=== PATIENT | male | born 1980 | race Caucasian/White ===

== ENCOUNTER 2023-04-06 16:56 | Emergency (ER) | payer MEDICAID, SELFPAY ==
[2023-04-06 16:59] VITALS: BP 208/175; PULSE 116; RESP 20; TEMP 36; O2SAT 99
[2023-04-06 17:16] VITALS: BP 168/131; PULSE 98; O2SAT 98
[2023-04-06] MEDS: cloNIDine 0.1 MG TAB 0.2 MG PO (17:16)
[2023-04-06] MEDS: LORazepam 1 MG TAB 2 MG PO (17:17)
[2023-04-06 17:19] VITALS: BP 200/135; PULSE 97
[2023-04-06 17:29] VITALS: TEMP 36.8
[2023-04-06 17:31] VITALS: BP 155/108; PULSE 96
--- NOTE | 2023-04-06 17:49 | ED.GENADUL_ITS ---
HPI General Date/Time Provider Initiated Documentation: 04/06/23 16:57 . Limitations to Documentation: no limitations . Information obtained by: patient . HPI Narrative: 43-year-old gentleman with past medical history of polysubstance abuse presents for evaluation of withdrawal symptoms. He states that he feels very anxious and hyperactive. Some nausea, no vomiting or diarrhea.'s mild headache. Denies chest pain or shortness of breath. States that he uses IV heroin mixed with cocaine. Last use 5 days ago. Has not used alcohol in 14 years. Has taken some buprenorphine in the last couple of days but is worried that he needs clonidine for his blood pressure Related Data Home Medications Medication Instructions Recorded Confirmed clonidine HCl 0.1 mg tablet 0.1 mg PO TID 1 month #90 tabs 04/06/23 Previous Rx's Medication Instructions Recorded clonidine HCl 0.1 mg tablet 0.1 mg PO TID 1 month #90 tabs 04/06/23 Allergies Allergy/AdvReac Type Severity Reaction Status Date / Time No Known Allergies Allergy Unverified 04/06/23 17:03 General Stated Complaint: DrugWithdr/MAT MANOLO: 3 Exam Narrative Exam Narrative: Review of Systems: All systems reviewed & are unremarkable except as noted in HPI and below Well-developed, no acute distress NCAT PERRL, normal conjunctiva Tachycardia, hypertensive Unlabored respiratory effort, clear breath sounds bilaterally Nondistended abdomen Extremities w/o deformity, no cyanosis, no edema Multiple injection sites, no signs of cellulitis no focal neurologic deficits Course Vital Signs Vital signs: Vital Signs Temperature 36.0 C L 04/06/23 16:59 Pulse 116 H 04/06/23 16:59 Respiratory Rate 20 04/06/23 16:59 Blood Pressure 208/175 H 04/06/23 16:59 Pulse Oximetry 99 04/06/23 16:59 Temperature 36.8 C 04/06/23 17:29 Temperature Source Oral 04/06/23 17:29 Pulse 96 H 04/06/23 17:31 Respiratory Rate 20 04/06/23 16:59 Respiratory Effort Normal 04/06/23 17:02 Respiratory Pattern Tachypnea 04/06/23 17:06 Blood Pressure 155/108 H 04/06/23 17:31 Blood Pressure Mean 117 04/06/23 17:31 Blood Pressure Position Sitting 04/06/23 16:59 Pulse Oximetry 98 04/06/23 17:16 Oxygen Delivery Method Room Air 04/06/23 16:59 Oxygen Flow Rate 0 04/06/23 16:59 Medical Decision Making Emergent evaluation of polysubstance abuse and probable withdrawal. Mixed picture of opiate and cocaine withdrawal. Patient is noted to be hypertensive and tachycardic. He denies any alcohol use. He does not have any concerning symptoms of chest pain or shortness of breath. He has no focal neurologic deficit. I doubt an acute intracranial process, doubt ACS, doubt dissection. Oral Ativan and clonidine given the patient was observed in the emergency department. His vital signs started to improve appropriately. He was provided information to follow-up with [facility] as well as a prescription for clonidine. Return precautions advised. At this time the patient is stable for discharge home. Medical Records Medical records reviewed: Yes I reviewed the patient's medical records. Quality:SDOH Health Related Social Needs: No Data to Display PFSH All Active Problems Hypertension (Chronic) Polysubstance dependence (Acute) Withdrawal from opioids (Acute) Social History Smoking/Tobacco Use Status: Current every day Tobacco Type: cigarettes Smoking risk assessment performed?: Yes Alcohol Intake: former Drug use: Daily Substance use type: heroin Details: Currently detoxing- 5 days out Housing: apartment Do you feel safe at home: Yes Do you feel safe in your relationship?: Yes Discharge Plan Disposition Patient Disposition: Home Discharge Details Clinical Impression: Withdrawal from opioids, Polysubstance dependence, Hypertension Primary Care Provider: None,None ED Provider: Clif Duron Home Meds and New Rx's Prescriptions: New clonidine HCl 0.1 mg tablet 0.1 mg PO TID 30 Days Qty: 90 0RF Discharge Instructions Additional Instructions: 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
== END 2023-04-06 17:51 | disposition home or self-care (01) ==
LOC: ER 17:52
PROVIDERS: Emergency Provider Emergency Medicine
DX: F11.93 Opioid use, unspecified with withdrawal (principal); F19.20 Other psychoactive substance dependence, uncomplicated; I10 Essential (primary) hypertension; R11.0 Nausea
CPT/HCPCS: 99283

== ENCOUNTER 2023-04-07 10:05 | Emergency (ER) | payer MEDICAID, SELFPAY ==
[2023-04-07 10:15] VITALS: BP 132/80; PULSE 110; RESP 18; TEMP 36.8; O2SAT 95
--- NOTE | 2023-04-07 10:40 | ED.GENADUL_ITS ---
HPI General Date/Time Provider Initiated Documentation: 04/07/23 10:28 . HPI Narrative: 43-year-old male with a past medical history of polysubstance abuse with heroin and cocaine in the past, hypertension, who in the past has received Suboxone over a year ago at the [facility] in [place]. Patient has been using his own heroin for the past year or so, got clean recently. He was seen last night for withdrawal symptoms after she had taken some of his own previous buprenorphine. He was given clonidine over a benzodiazepine and was feeling much better and was discharged. Patient states that he feels much better now, he does not have significant symptoms of withdrawal currently on the clonidine, however he states that he will be appearing in this cold area for the next few days and will not be able to get back to his normal clinic or primary care provider who normally prescribes him his medications for few days and is asking for a few days of medication. Additionally he is asking for something to help sleep as well. Patient denies any other complaints at this time. No other modifying factors. Related Data Home Medications Medication Instructions Recorded Confirmed clonidine HCl 0.1 mg tablet 0.1 mg PO TID 1 month #90 tabs 04/06/23 04/07/23 Previous Rx's Medication Instructions Recorded clonidine HCl 0.1 mg tablet 0.1 mg PO TID 1 month #90 tabs 04/06/23 Allergies Allergy/AdvReac Type Severity Reaction Status Date / Time No Known Allergies Allergy Unverified 04/06/23 17:03 General Stated Complaint: DrugWithdr/MAT MANOLO: 3 Review of Systems All systems reviewed & are unremarkable except as noted in HPI and below Exam Narrative Exam Narrative: 1.Const: Well-nourished, Well-developed, appearing stated age 2.Eyes: PERRL, no conjunctival injection, and symmetrical lids. 3.ENT: Atraumatic external nose and ears. Moist MM. Neck: Symmetric, trachea midline, No thyromegaly. 4.CVS: +S1/S2, No murmurs or gallops. Peripheral pulses 2+ and equal in all extremities. Brisk capillary refill in all extremities. 5.RESP: Unlabored respiratory effort. Clear to auscultation bilaterally. No wheezes rales or rhonchi 6.GI: Soft, Nontender/Nondistended, No hepatosplenomegaly. No guarding or rebound. 7.MSK: Normocephalic/Atraumatic, Extremities w/o deformity or ttp No cyanosis or clubbing, Normal movement of all extremities 8.Skin: Warm, Dry. No rashes or lesions. 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 Sensation grossly intact, no focal neurologic deficits. 10.Psych: (AAO) x3. Appropriate mood and affect Course Vital Signs Vital signs: Vital Signs Temperature 36.8 C 04/07/23 10:15 Pulse 110 H 04/07/23 10:15 Respiratory Rate 18 04/07/23 10:15 Blood Pressure 132/80 04/07/23 10:15 Pulse Oximetry 95 04/07/23 10:15 Temperature 36.8 C 04/07/23 10:15 Temperature Source Oral 04/07/23 10:15 Pulse 110 H 04/07/23 10:15 Respiratory Rate 18 04/07/23 10:15 Respiratory Effort Normal, Non-Labored 04/07/23 10:20 Respiratory Pattern Normal 04/07/23 10:25 Blood Pressure 132/80 04/07/23 10:15 Blood Pressure Position Sitting 04/07/23 10:15 Pulse Oximetry 95 04/07/23 10:15 Oxygen Delivery Method Room Air 04/07/23 10:15 Oxygen Flow Rate 0 04/07/23 10:15 Medical Decision Making 43-year-old male with a past medical history of polysubstance abuse with heroin and cocaine in the past, hypertension, who in the past has received Suboxone over a year ago at the [facility] in [place]. Patient has been using his own heroin for the past year or so, got clean recently. He was seen last night for withdrawal symptoms after she had taken some of his own previous buprenorphine. He was given clonidine over a benzodiazepine and was feeling much better and was discharged. Patient states that he feels much better now, he does not have significant symptoms of withdrawal currently on the clonidine, however he states that he will be appearing in this cold area for the next few days and will not be able to get back to his normal clinic or primary care provider who normally prescribes him his medications for few days and is asking for a few days of medication. Additionally he is asking for something to help sleep as well. Patient denies any other complaints at this time. No other modifying factors. Exam demonstrates well-appearing male, minimal tachycardia, no signs of abnormality otherwise. We did contact the [facility] at [place], and they confirmed that the patient's last active use was on 10/08/2021, where he received Suboxone at 8 mg daily patient states that from his PCP he was receiving buprenorphine 8 mg 3 times daily. I discussed with the patient their recurrent opiate issues. Today they have been evaluated in the emergency department for this issues. I emphasized that my training was in the treatment of acute pain, that their physical exam here is quite reassuring, and that definitive treatment of chronic pain is not the role of the emergency department and will be able to be provided at the methadone clinic. I compassionately explained that I felt providing extended opiate relief medication prescriptions from the emergency department was counterproductive in that this may cause or exacerbate tolerance, acute overdose, physiological or psychological dependence, or withdrawal. We discussed that management of chronic pain is best managed by a single practitioner, such as a primary care provider or a pain specialist. I reiterated that the patient's care is best and most safely facilitated through a chronic pain and buprenorphine antenna specialist. We will place a referral on his behalf to the clinic here in [place]. We will give him a dose for today in the interim. We will also give a single anxiolytic dose for tonight for sleep as needed. I also made very clear that this is a one-time exception, and any additional doses need to be managed by his PCP. Discussed red flags for which to return. I have extensively reviewed the treatment plan and discharge instructions with the patient. I have addressed all patient concerns at this time. The patient was made aware of what symptoms to monitor for that would warrant a return to the emergency department. Discussed the plan with the patient, they demonstrate verbal understanding and agreement with our assessment and plan at this time. The documentation in this chart was dictated using [employer] dictation software. Please excuse any dictation errors. Quality:SDOH Health Related Social Needs: No Data to Display PFSH All Active Problems (Updated 04/07/23 @ 10:53 by Gregg Thorne DO) Buprenorphine dependence (Acute) Hypertension (Chronic) Polysubstance dependence (Acute) Withdrawal from opioids (Acute) Social History Smoking/Tobacco Use Status: Current every day Tobacco Type: cigarettes Smoking risk assessment performed?: Yes Alcohol Intake: former Drug use: Occasionally Substance use type: heroin Details: Currently detoxing- 6 days out Housing: apartment Do you feel safe at home: Yes Do you feel safe in your relationship?: Yes Discharge Plan Disposition Patient Disposition: Home Discharge Details Chief Complaint: DrugWithdr/MAT Clinical Impression: Buprenorphine dependence, Polysubstance dependence Primary Care Provider: None,None ED Provider: Gregg Thorne Home Meds and New Rx's Prescriptions: No Action clonidine HCl 0.1 mg tablet 0.1 mg PO TID 30 Days Qty: 90 0RF Discharge Instructions Instructions: Buprenorphine (Into the mouth) Additional Instructions: At this time we have placed a referral with the [facility] clinic. Please call them today to establish care for your remaining days here. We have given you the daily dose of buprenorphine here of 8 mg. This is the single needed dose for today. Please take the Valium only as absolutely needed for sleep tonight. Do not take it in conjunction with the buprenorphine. If you notice any worsening of your symptoms, or any new symptoms such as vomiting, diarrhea, fever, chills, shortness of breath, chest pain, numbness, weakness, or fainting , please return immediately to the emergency department for reevaluation. Please follow up with your primary care provider as soon as possible for reassessment and reevaluation. As always, it was a pleasure participating in your medical care today. [facility] Number: [phone]
[2023-04-07] MEDS: diazePAM 5 MG TAB PO (11:07)
[2023-04-07 11:16] VITALS: BP 144/98; PULSE 101; RESP 18; O2SAT 99
--- NOTE | 2023-04-07 12:26 | NUR.NOTE ---
Addendum entered by Michelle Purcell 04/07/23 12:28: [facility] . Original Note: Call to [facility] pt not active as of 10/08/2021. Last dose at that time was Suboxone tablets 8mg daily. Referral faxed to [facility] for MAT, provider note and demographics were also faxed. Nursing Note:
--- NOTE | 2023-04-08 12:16 | NUR.NOTE ---
Dr. Courtney; [facility]; called requesting that I resend the provider note. I have done this. Nursing Note:
== END 2023-04-07 11:17 | disposition home or self-care (01) ==
PROVIDERS: Emergency Provider Student in an Organized Health Care Education/Training Program
DX: F19.20 Other psychoactive substance dependence, uncomplicated (principal); I10 Essential (primary) hypertension
CPT/HCPCS: 99283; J3490